=== PATIENT | male | born 1965 | race African-American/Black ===

== ENCOUNTER 2023-12-14 16:46 | Inpatient (IN) | payer OTHER ==
[~2023-12-14] VITALS: Ht 175.3 cm; Wt 113.1 kg
[2023-12-14 17:29] LABS: BASOPHILS % 1.1 % (0.0-2.0); HEMATOCRIT. 32.4 % (42.0-52.0); HEMOGLOBIN. 10.8 g/dL (14.0-18.0); LYMPHOCYTES % 8.7 % (20.0-50.0); MEAN CORPUSCULAR HEMOGLOBIN 32.2 pg (28.0-32.0); MEAN CORPUSCULAR HGB CONC 33.4 g/dL (31.0-37.0); MEAN CORPUSCULAR VOLUME 96.5 fL (80.0-94.0); NEUTROPHILS % 78.2 % (40.0-76.0); PLATELET 161 x1000/uL (130-400); RED BLOOD CELL COUNT 3.36 mill/uL (4.7-6.1); RED CELL DISTRIBUTION WIDTH 19.2 % (11.6-14.6)
[2023-12-14 17:33] LABS: CHLORIDE 97 mEq/L (98-107); POTASSIUM 4.1 mEq/L (3.5-5.1); SODIUM 137 mEq/L (136-145)
[2023-12-14 17:34] LABS: CALCIUM 8.7 mg/dL (8.7-10.4); CARBON DIOXIDE 32 mEq/L (21-32)
[2023-12-14 17:39] LABS: GLUCOSE 86 mg/dL (70-105); UREA NITROGEN BLOOD 40 mg/dL (9-23)
[2023-12-14 17:44] LABS: ETHANOL BLOOD < 10 mg/dL (<10)
[2023-12-14 17:47] LABS: CREATININE 9.3 mg/dL (0.6-1.3)
[2023-12-14] MEDS: ACETAMINOPHEN 500MG TABLET PO ONE (19:56)
[2023-12-14] MEDS: LOSARTAN 50 MG TABLET PO STA (19:56)
[2023-12-14] MEDS ORDERED: ACETAMINOPHEN 325MG TABLET PO PRN (22:30)
[2023-12-14] MEDS ORDERED: ONDANSETRON HCL 4MG/2ML INJ IV PRN (22:30)
[2023-12-14] MEDS ORDERED: MAGNESIUM/ALUMINUM HYDROXIDE/SIMETHICONE 30ML UDC PO PRN (22:30)
[2023-12-14] MEDS ORDERED: CLONIDINE 0.1MG TABLET PO PRN (22:30)
[2023-12-15] VITALS (14 sets, daily range): BP systolic 114–157; BP diastolic 57–80; PULSE 72–79; RESP 12–20; TEMP 97.6–98.1; O2SAT 98
[2023-12-15] MEDS: LEVETIRACETAM 500MG PREMIX 100 ML IV SCH ×2 (00:52→22:23)
[2023-12-15] MEDS: HYDROCODONE/ACETAMINOPHEN 5/325MG TABLET PO PRN (04:08)
[2023-12-15 05:38] LABS: BASOPHILS % 1.2 % (0.0-2.0); EOSINOPHILS % 2.7 % (0.0-5.0); HEMATOCRIT. 32.6 % (42.0-52.0); HEMOGLOBIN. 10.8 g/dL (14.0-18.0); LYMPHOCYTES % 12.3 % (20.0-50.0); MEAN CORPUSCULAR HEMOGLOBIN 31.9 pg (28.0-32.0); MEAN CORPUSCULAR HGB CONC 33.2 g/dL (31.0-37.0); MEAN CORPUSCULAR VOLUME 96.2 fL (80.0-94.0); MEAN PLATELET VOLUME 9.1 fl (7.4-10.4); MONOCYTES % 11.7 % (2.0-8.0); NEUTROPHILS % 72.1 % (40.0-76.0); PLATELET 159 x1000/uL (130-400); RED BLOOD CELL COUNT 3.39 mill/uL (4.7-6.1); RED CELL DISTRIBUTION WIDTH 18.9 % (11.6-14.6); WHITE BLOOD COUNT 6.2 x1000/uL (4.5-11.0)
[2023-12-15 05:45] LABS: CHLORIDE 96 mEq/L (98-107); POTASSIUM 4.5 mEq/L (3.5-5.1); SODIUM 137 mEq/L (136-145)
[2023-12-15 05:46] LABS: CALCIUM 8.7 mg/dL (8.7-10.4); CARBON DIOXIDE 31 mEq/L (21-32)
[2023-12-15 05:51] LABS: GLUCOSE 86 mg/dL (70-105); TRIGLYCERIDE 86 mg/dL (0-150); TROPONIN I HIGH SENSITIVITY 48 ng/L (3.0-53); UREA NITROGEN BLOOD 47 mg/dL (9-23)
[2023-12-15 05:52] LABS: LDL CHOLESTEROL 78 mg/dL (5-100)
[2023-12-15 05:53] LABS: ALANINE AMINOTRANSFERASE 10 IU/L (10-49); ALBUMIN 4.2 g/dL (3.2-4.8); ASPARTATE AMINOTRANSFERASE 19 IU/L (<34); BILIRUBIN DIRECT 0.3 mg/dL (<=3.0); CHOLESTEROL 140 mg/dL (<200); HDL CHOLESTEROL 40 mg/dL (>55)
[2023-12-15 05:54] LABS: BILIRUBIN TOTAL 0.8 mg/dL (0.1-1.0); PROTEIN TOTAL 7.2 g/dL (6.0-8.3); T4 FREE 0.79 ng/dL (0.89-1.76)
[2023-12-15 05:55] LABS: THYROID STIMULATING HORMONE 1.69 uIU/mL (0.55-4.78)
[2023-12-15 06:08] LABS: CLARITY URINE CLEAR (CLEAR); COLOR URINE YELLOW (YELLOW); GLUCOSE URINE 1+ (NEGATIVE); KETONES URINE NEGATIVE (NEGATIVE); LEUKOCYTE ESTERASE URINE NEGATIVE (NEGATIVE); NITRITE URINE NEGATIVE (NEGATIVE); OCCULT BLOOD URINE 1+ (NEGATIVE); PROTEIN URINE 2+ (NEGATIVE); UROBILINOGEN URINE 0.2 E.U./dL (0.2-1.0)
[2023-12-15 06:14] LABS: *AMPHETAMINES SCREEN URINE NEGATIVE (NEGATIVE); *BARBITURATES SCREEN URINE NEGATIVE (NEGATIVE); *BENZODIAZEPINES SCREEN URINE NEGATIVE (NEGATIVE)
[2023-12-15 06:15] LABS: *COCAINE SCREEN URINE NEGATIVE (NEGATIVE); CANNABINOID URINE SCREEN NEGATIVE (NEGATIVE); ECSTASY MDMA SCREEN URINE NEGATIVE (NEGATIVE); METHADONE URINE SCREEN NEGATIVE (NEGATIVE); OPIATES URINE SCREEN NEGATIVE (NEGATIVE); PHENCYCLIDINE URINE SCREEN NEGATIVE (NEGATIVE)
[2023-12-15 06:26] LABS: CREATININE 10.8 mg/dL (0.6-1.3)
[2023-12-15 06:27] LABS: PHOSPHORUS 8.4 mg/dL (2.5-4.9)
[2023-12-15 09:07] LABS: SQUAMOUS EPITHELIAL CELL URINE RARE /lpf (RARE/1+)
[2023-12-15 09:08] LABS: BACTERIA URINE NONE SEEN; RBC URINE 0-2 /hpf (0-2); WBC URINE 0-2 /hpf (0-2)
[2023-12-15] MEDS: ENOXAPARIN 40MG/0.4ML SYR SUBCUT SCH (10:00)
[2023-12-15] MEDS: PANTOPRAZOLE SODIUM 40 MG/VIAL IV SCH (10:00)
[2023-12-15] MEDS ORDERED: NALOXONE HCL 0.4MG/ML VIAL IV PRN (11:00)
[2023-12-15] MEDS ORDERED: DEXTROSE 50% WATER 50ML SYRINGE IV PRN (11:45)
[2023-12-15] MEDS: BLOOD SUGAR DIAGNOSTIC STRIP TEST SCH (11:50)
[2023-12-15 11:55] LABS: HEPATITIS B SURFACE ANTIGEN NEGATIVE (Negative)
[2023-12-15 12:16] LABS: HEPATITIS A AB IGM NEGATIVE (Negative); HEPATITIS B CORE AB IGM NEGATIVE (Negative)
[2023-12-15 12:17] LABS: HEPATITIS C AB NON REACTIVE (Neg) (Negative)
[2023-12-15] MEDS: INSULIN LISPRO 100 UNITS/ML SUBCUT SCH (12:20)
[2023-12-15] MEDS: SEVELAMER CARBONATE 800 MG TABLET PO SCH (16:40)
[2023-12-15] MEDS: GABAPENTIN 300MG CAPSULE PO SCH (16:41)
[2023-12-15] MEDS ORDERED: DIPHENHYDRAMINE 50MG CAPSULE PO PRN (16:45)
== END 2023-12-15 23:35 | disposition short-term general hospital (02) | DRG 73 ==
LOC: ER 16:46 → 3WST 20:38 → EDBEDREQTM 20:45 → EDBEDREQ 20:45
PROVIDERS: ADMIT Family Medicine Adult Medicine; ATTEND Family Medicine Adult Medicine
PROC: 5A1D70Z Performance of Urinary Filtration, Intermittent, Less than 6 Hours Per Day (ICD-10-PCS; principal; 2023-12-15)
DX: G90.8 Other disorders of autonomic nervous system (principal); N18.6 End stage renal disease; I12.0 Hypertensive chronic kidney disease with stage 5 chronic kidney disease or end stage renal disease; R56.9 Unspecified convulsions; E11.40 Type 2 diabetes mellitus with diabetic neuropathy, unspecified; E11.22 Type 2 diabetes mellitus with diabetic chronic kidney disease; D64.9 Anemia, unspecified; E83.39 Other disorders of phosphorus metabolism; Z99.2 Dependence on renal dialysis; Z79.899 Other long term (current) drug therapy
CPT/HCPCS: 36415; 71045; 80048; 80061; 80076; 80305; 80320; 81003; 82962; 83036; 83735; 84100; 84439; 84443; 84484; 85025; 86705; 86709; 87340; 90935; 93005; 93306; 93970; 99285; C9113; J1650; J1953; G0480